=== PATIENT | female | born 1985 | race African-American/Black ===

== ENCOUNTER 2016-08-27 12:39 | Emergency (ER) | payer SELFPAY ==
[~2016-08-27] VITALS: Ht 160 cm; Wt 122.7 kg
[2016-08-27 12:41] VITALS: BP 149/90; PULSE 99; RESP 18; TEMP 98.7; O2SAT 99
--- NOTE | 2016-08-27 13:58 | PD ---
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 She has had an issue with her foot for about 6 weeks. She says she thinks she has a plantar's wart. She was seen in an emergency department in [place] for this and was told to see a kennel technician. She has been trying OTC treatments with no relief. She denies any erythema or warmth to the area. She says she has had vaginal itching for the past 5 days. She denies any discharge. She denies any abdominal pain, nausea or vomiting. She denies any dysuria. PFSH Past Medical History Medical History: Denies Significant Hx Diminished Hearing: No Tetanus Vaccination: < 5 Years Influenza Vaccination: No ?: Not LMP: 08/14/16 : 0 Para: 0 Miscarriage: 0 : 0 Past Surgical History Other Surgery: Yes (L 4TH AND 5TH DIGIT ) Social History Alcohol Use: No Tobacco Use: No Substance Use: No Allergies-Medications (Allergen,Severity, Reaction): Coded Allergies: No Known Allergies (Unverified , 08/27/16) Reported Meds & Prescriptions Reported Meds & Active Scripts Active No Active Prescriptions or Reported Medications Review of Systems Except as stated in HPI: all other systems reviewed are Neg General / Constitutional: No: Fever, Chills HENT: No: Headaches, Lightheadedness Cardiovascular: No: Chest Pain or Discomfort Respiratory: No: Shortness of Breath Gastrointestinal: No: Nausea, Vomiting, Abdominal Pain Genitourinary: No: Discharge Musculoskeletal: Positive: Pain Skin: Positive Lesions Neurologic: No: Weakness, Dizziness Physical Exam Narrative GENERAL: Awake and alert, in no acute distress. SKIN: Focused skin assessment warm/dry. Callus to the ball of the left foot. No surrounding erythema or warmth, no signs of infection. HEAD: Atraumatic. Normocephalic. EYES: Pupils equal and round. No scleral icterus. No injection or drainage. ENT: No nasal bleeding or discharge. Mucous membranes pink and moist. NECK: Trachea midline. No JVD. CARDIOVASCULAR: Regular rate and rhythm. No murmur appreciated. RESPIRATORY: No accessory muscle use. Clear to auscultation. Breath sounds equal bilaterally. GASTROINTESTINAL: Abdomen soft, non-tender, nondistended. : Performed in the presence of a female nurse. Small amount of white discharge. No Cervical lesions. No CMT. MUSCULOSKELETAL: No obvious deformities. No clubbing. No cyanosis. No edema. NEUROLOGICAL: Awake and alert. No obvious cranial nerve deficits. Motor grossly within normal limits. Normal speech. PSYCHIATRIC: Appropriate mood and affect; insight and judgment normal. Data Data Last Documented VS Vital Signs Date Time Temp Pulse Resp B/P Pulse Ox O2 Delivery O2 Flow Rate FiO2 08/27/16 12:41 98.7 99 18 149/90 99 Orders Wet Prep Profile (08/27/16 13:24) Ed Urine Pregnancytest Poc (08/27/16 13:43) Urinalysis - C+S If Indicated (08/27/16 13:43) Labs Laboratory Tests Test 08/27/16 08/27/16 13:35 13:50 Clue Cells (Wet Prep) NONE SEEN Vaginal Trichomonas (Wet Prep) NONE SEEN Vaginal Yeast (Wet Prep) NONE SEEN Urine Color YELLOW Urine Turbidity HAZY Urine pH 6.0 Urine Specific [place] 1.026 Urine Protein NEG mg/dL Urine Glucose (UA) NEG mg/dL Urine Ketones NEG mg/dL Urine Occult Blood NEG Urine Nitrite NEG Urine Bilirubin NEG Urine Urobilinogen LESS THAN 2.0 MG/DL Urine Leukocyte Esterase NEG Urine RBC 11 /hpf Urine WBC 3 /hpf Urine Squamous Epithelial 8 /hpf Cells Urine Mucus FEW /lpf Microscopic Urinalysis Comment CULT NOT INDICATED MDM Medical Decision Making Medical Screen Exam Complete: Yes Emergency Medical Condition: Yes Differential Diagnosis BV vs yeast infection vs UTI Narrative Course Patient is a 31 year old female who comes in complaining of vaginal itching and foot pain. Exam shows a callus to the foot. Swab sent for wet prep. Urine sent for urinalysis. Wet prep shows no acute abnormalities. Urinalysis is negative for infection. Referral to podiatry placed. Advised to take Ibuprofen as needed for pain and follow up with podiatry and twist packer as needed. Advised to return to the ED as needed for any worsening symptoms. Diagnosis Primary Impression: Foot pain Qualified Code: M79.672 - Left foot pain Patient Instructions: General Instructions, Plantar Wart (ED) Additional Instructions: Follow up with podiatry. Return to the ED as needed for any worsening symptoms. Scripts No Active Prescriptions or Reported Meds Disposition: 01 DISCHARGE HOME Condition: Stable Mary Sparks MD Aug 27, 2016 13:58
[2016-08-27 14:14] LABS: BLOOD, URINE NEG (NEG); COMMENT (UR) CULT NOT INDICATED; CULTURE IF INDICATED CULT NOT INDICATED; GLUCOSE,URINE NEG (NEG); KETONE, URINE NEG (NEG); MUCUS URINE FEW /lpf (OCC); NITRITE,URINE NEG (NEG); SQUAMOUS EPITHELIAL CELL URINE 8 /hpf (0-5); URINE COLOR YELLOW (YELLW/STRAW)
== END 2016-08-27 15:10 | disposition home or self-care (01) ==
LOC: NEPD 12:39
DX: M79.672 Pain in left foot (principal)
CPT/HCPCS: 81001; 84703; 87210; 99283